=== PATIENT | male | born 1990 | race Hispanic/Latino ===

== ENCOUNTER 2016-10-02 23:08 | Emergency (ER) | payer OTHER ==
[~2016-10-02] VITALS: Ht 185.4 cm; Wt 90.9 kg
[2016-10-02 23:16] VITALS: BP 120/72; PULSE 80; RESP 16; O2SAT 98
--- NOTE | 2016-10-02 23:29 | ED.REPORT ---
HPI-Extremity Problem Lower Date of Service Oct 02, 2016 ED Provider: Vasquez Whiting MD A 26 year old male with a history of fracture and dislocation of the left knee presents to the ED complaining of left knee pain. The pt was stepping out of his vehicle when he felt his left knee pop. He has been experiencing pain since and it is now difficult to walk on the knee. He states that this feels similar to when he dislocated his knee before. The pt has been wearing his old knee brace since his injury tonight. Nursing Notes Stated Complaint: LEFT KNEE INJURY Chief Complaint: Extremity Trauma Nursing Notes Reviewed: Yes Allergies: Coded Allergies: No Known Allergies (Unverified , 10/02/16) No Active Prescriptions or Reported Meds General Time Seen by MD: 23:22 Chief Complaint Knee injury left Hx Obtained From: Patient Arrived By: Walk-in Onset Occurred: 1 - 4 hours ago Symptom Duration: Since onset Recent Healthcare: No recent doctor visit, No recent hospitalization Similar Sx Previous: Yes Past Medical History Past Medical History Healthy Left knee fracture and dislocation 01/2016 Past Surgical History Denies Smoking History Never Smoker Social History Alcohol Use: "Social" Drug Use: Denies drug use Other Social History: Good social support Ambulatory Status Independent Review of Systems Constitutional: Denies: Fever Musculoskeletal: Reports: Joint pain (left knee), Denies: Back pain, Neck pain Skin: Denies Rash Complete sys rev & neg: except as marked. Respiratory: Denies: Non-productive cough Cardiovascular: Denies: Chest pain GI: Denies: Abdominal pain Physical Exam Initial Vital Signs Vital Signs (First) Date Time Temp Pulse Resp B/P Pulse Ox O2 Delivery O2 Flow Rate FiO2 10/02/16 23:16 36.2 80 16 120/72 98 Room Air Initial VS: Reviewed, Vital signs normal Lower Extremity / Pelvis / MS: No deformity bruised area with tenderness overlying left medial collateral ligament mild swelling without definite effusion pain with movement increased pain of MCL with valgus strain no laxity with verus or valgus strain Ankle / Foot: Atraumatic, Full range of motion General/Constitutional: Awake, Alert Respiratory / Chest: Atraumatic, Breath sounds NL, Breath sounds = bilat, No respiratory distress Cardiovascular: Heart rate NL, Regular rhythm, Heart sounds NL Skin: Atraumatic, Color NL, No rash, Warm, Dry Neurologic: Oriented X3, Speech NL, No motor deficits, No sensory deficits Head / Eyes: Atraumatic, Normocephalic, PERRL, EOMI ENT: Atraumatic, Airway patent, Mucous membranes moist Neck: Atraumatic, Supple, Full range of motion Abdomen: Atraumatic, Soft, Non-tender Back: Atraumatic, Full range of motion Upper Extremity / MS: Atraumatic, Full range of motion Psychiatric: Affect NL, Mood NL Interpretation & Diagnostics X-Ray Interpretation Xray Interpretation: no acute findings X-Ray Ordered: Knee left Interpretation / Wet Read by: Wet read ED physician Re-Eval/Medical Decision Med Decision/Clinical Course 26-year-old male with a previous left knee injury presents now with a plant and twist injury with significant pain over the medial knee. He says it feels just like before. There is tenderness of the left medial collateral ligament with some bruising over the distal and he has pain with valgus strain but no instability. X-ray examination shows some mild spurring but no other abnormalities. He has a knee brace which he will wear. Tylenol and/or ibuprofen for pain. Follow-up with the orthopedic clinic for further management. Source of Hx: Old records Re-Evaluation/Progress : Time of Eval: 00:44 Patient Status: Condition improved Re-Evaluation/Progress Note: Pt rechecked, who is resting comfortably. He is informed of radiology results and diagnosis. The plan for discharge is discussed. The pt understands and agrees with the plan. All questions are addressed at this time. Counseled Regarding: Diagnosis, Lab results, Need for follow-up, When/why to return to ED Discharge & Departure Impression: Primary Impression: Sprain of medial collateral ligament of left knee Encounter type: initial encounter Qualified Code: S83.412A - Sprain of medial collateral ligament of left knee, initial encounter Disposition: Home Discharge Condition All VS Reviewed: Yes Condition: Stable Patient Instructions: Knee Sprain (ED) Additional Instructions: X-ray is normal with the exception of some small bone spurs. It appears on physical exam that you have sprained the medial collateral ligament. Wear the brace. Use ibuprofen and/or Tylenol for pain. Follow-up with Dr. Saldivar at [facility]. Referrals: Semaj Saldivar MD [facility] Scribe Attestation Portions of this note were transcribed by Paul Carroll I, Dr. Whiting personally performed the history, physical exam and medical decision-making; I reviewed and confirmed the accuracy of the information in the transcribed note. Signed by: Lacy Lim, 10/03/16 and 00:55. copies to: Semaj Saldivar MD; [facility] Vasquez Whiting MD Oct 02, 2016 23:29 PAUL CARROLL Oct 02, 2016 23:47
--- NOTE | 2016-10-03 09:02 | DRSVH ---
PROCEDURE: X-RAY LEFT KNEE, THREE VIEWS ([id number]) INDICATIONS: twisting injury, hx fracture TECHNIQUE: 3 views of the knee were acquired. COMPARISON: [facility], CR, XR KNEE 3VW LT, 02/24/2016, 16:23. FINDINGS: Bones: No fractures or dislocations. No suspicious bony lesions. Soft tissues: Small joint effusion. No suspicious soft tissue calcifications. IMPRESSION: No displaced fracture seen. If there is continued pain, followup exam or additional ned ging such as MRI or CT could be performed for further assessment. Dictated by: Job Kraft A Interpreted: Christina Carver MD on 10/03/2016 at 9:01 Transcribed by: REYNALDO on 10/03/2016 at 9:01 Approved by: Christina Carver MD, PhD on 10/03/2016 at 16:44
== END 2016-10-03 01:13 | disposition home or self-care (01) ==
LOC: SED 23:08
DX: S83.412A Sprain of medial collateral ligament of left knee, initial encounter (principal); X50.9XXA Other and unspecified overexertion or strenuous movements or postures, initial encounter; Y93.89 Activity, other specified; Y99.8 Other external cause status; Y92.014 Private driveway to single-family (private) house as the place of occurrence of the external cause